=== PATIENT | male | born 1970 | race Caucasian/White ===

== ENCOUNTER → 2021-05-14 10:58 | Outpatient (CLI) | payer OTHER, SELFPAY ==
--- NOTE | ~2021-05-14 | US_ITS ---
EXAMINATION: US abdomen limited EXAM DATE: 05/14/2021 11:18 INDICATION: R74.8 - Abnormal levels of other serum enzymes. TECHNIQUE: Multiple grayscale and Doppler images of the abdomen right upper quadrant were obtained (b y a technologist who performed the scan) and subsequently reviewed. There is no prior study for vasquez rivera. FINDINGS: The pancreatic head and body are normal in appearance. The pancreatic tail is not visualized. There is echogenic liver parenchyma with poor penetration, hepatic steatosis. There are no focal liver le sions identified. There is no evidence of intrahepatic biliary duct dilation. Portal venous flow w as seen in the hepatopedal, normal direction and has normal Doppler waveform. No right-sided hydrone phrosis. Common bile duct measures 5 mm, which is normal. The gallbladder wall is normal in thickness, with ex pected amount of distention. No sonographic evidence of pericholecystic fluid. There is no cholelit hiases. Technologist performing exam reports patient did not demonstrate sonographic Moore's sign. Please note that this sign is less reliable in patients who have received pain medication. IMPRESSION: 1. Hepatic steatosis. Reviewed, dictated and finalized at location A. LOGY TEACHER IMPRESSION: 1. Hepatic steatosis.
== END ==
PROVIDERS: Visit Provider Nurse Practitioner Family
DX: R74.9 Abnormal serum enzyme level, unspecified (principal); K76.0 Fatty (change of) liver, not elsewhere classified
CPT/HCPCS: 76705

== ENCOUNTER 2022-06-29 10:10 | Outpatient (CLI) | payer OTHER, SELFPAY ==
--- NOTE | 2022-06-29 10:40 | EST_ITS ---
Patient Info Name: Hardik Delgado Age: 51 years : 1970 Gender: Male Ht: 69 in Wt: 170 lbs BSA: 1.95 m2 HR: 74 bpm BP: 140 / 94 mmHg Heart Rhythm: Sinus Rhythm Exam Date: 06/29/2022 10:48 AM Exam Location: [facility] Stress Patient Status: Outpatient Admit Date: 06/29/2022 Staff Ordering Physician: Yas Leahy NP Attending Provider: Yas Leahy NP Exercise Technologist: Carissa Sweet CT Exercise Physician: Jeronimo Florence DO Exam Type: CA stress test treadmill Study Info Indications Z72.3 - EXERCISE INTOLERANCE A treadmill exercise stress test was performed. Summary 1. 1. Negative Soto exercise stress test for ischemic ST changes by ECG criteria. 2. 2. Reduced functional capacity, achieving 8 METs of workload. 3. 3. Baseline hypertension. 4. 4. Appropriate HR response to exercise. 5. 5. Appropriate HR recovery at 1 minute post exercise. 6. 6. No imaging with stress testing. 7. 7. Patient informed of the above results. Protocol: Soto Stress ECG Details Stage: REST Duration (min): 1 min : 14 sec Speed (mph): 0.0 Grade (%): 0 HR (bpm): 76 SBP (mmHg): 140 DBP (mmHg): 94 METS: --- Stage: REST Duration (min): 3 min : 25 sec Speed (mph): 0.0 Grade (%): 0 HR (bpm): 89 SBP (mmHg): 140 DBP (mmHg): 94 METS: --- Stage: STAGE 1 Duration (min): 1 min : 0 sec Speed (mph): 1.7 Grade (%): 10 HR (bpm): 114 SBP (mmHg): 140 DBP (mmHg): 94 METS: --- Stage: STAGE 1 Duration (min): 2 min : 0 sec Speed (mph): 1.7 Grade (%): 10 HR (bpm): 128 SBP (mmHg): 140 DBP (mmHg): 94 METS: --- Stage: STAGE 1 Duration (min): 3 min : 0 sec Speed (mph): 1.7 Grade (%): 10 HR (bpm): 129 SBP (mmHg): 177 DBP (mmHg): 85 METS: --- Stage: STAGE 2 Duration (min): 1 min : 0 sec Speed (mph): 2.5 Grade (%): 12 HR (bpm): 143 SBP (mmHg): 177 DBP (mmHg): 85 METS: --- Stage: STAGE 2 Duration (min): 2 min : 0 sec Speed (mph): 2.5 Grade (%): 12 HR (bpm): 152 SBP (mmHg): 182 DBP (mmHg): 86 METS: --- Stage: STAGE 2 Duration (min): 3 min : 0 sec Speed (mph): 2.5 Grade (%): 12 HR (bpm): 160 SBP (mmHg): 182 DBP (mmHg): 86 METS: --- Stage: STAGE 3 Duration (min): 0 min : 30 sec Speed (mph): 3.4 Grade (%): 14 HR (bpm): 166 SBP (mmHg): 197 DBP (mmHg): 88 METS: --- Stage: RECOVERY Duration (min): 0 min : 29 sec Speed (mph): 0.0 Grade (%): 0 HR (bpm): 167 SBP (mmHg): 197 DBP (mmHg): 88 METS: --- Stage: RECOVERY Duration (min): 1 min : 29 sec Speed (mph): 0.0 Grade (%): 0 HR (bpm): 129 SBP (mmHg): 197 DBP (mmHg): 88 METS: --- Stage: RECOVERY Duration (min): 2 min : 29 sec Speed (mph): 0.0 Grade (%): 0 HR (bpm): 111 SBP (mmHg): 197 DBP (mmHg): 88 MET
== END 2022-06-29 10:11 | disposition home or self-care (01) ==
LOC: ANHCARD 10:11
PROVIDERS: PCP Nurse Practitioner Family; Visit Provider Nurse Practitioner Family
DX: R68.89 Other general symptoms and signs (principal)
CPT/HCPCS: 93017

== ENCOUNTER 2023-12-29 15:13 | Emergency (ER) | payer OTHER, SELFPAY ==
--- NOTE | ~2023-12-29 | XR_ITS ---
XR elbow LT min 3V Ordering provider: Madison Monge APRN History: . pain swelling to left posterior elbow, no injury . Comparison: None. FINDINGS: BONES: Small chip of bone is seen superiorly adjacent to the medial humeral condyle. Small chip fract ure seen inferiorly near to the medial humeral condyle with slight displacement. JOINT SPACES: Normal. SOFT TISSUES: Soft tissue swelling seen posteriorly. IMPRESSION: Chip fractures seen near to the medial humeral condyle. Avulsion fractures are not excluded. Soft tis jeevan swelling seen posteriorly. Reviewed, dictated and finalized at location A. IMPRESSION: Chip fractures seen near to the medial humeral condyle. Avulsion fractures are not excluded. Soft tissue swelling seen posteriorly.
--- NOTE | 2023-12-29 16:42 | ED.UPPEXIN ---
HPI - Extremity Injury (Upper) General Chief Complaint: Extremity Injury, Upper Stated Complaint: Right Elbow Pain Source: patient Mode of arrival: ambulatory Limitations: no limitations History of Present Illness HPI narrative: 53-year-old male presented for complaint of left elbow swelling after injury 10 days ago. He states he tripped and landed on the elbow. He denies any pain, numbness, tingling, weakness of the extremity. He states he has swelling to the skin of the elbow and 'it dangles.' Related Data Home Medications Medication Instructions Recorded Confirmed omeprazole 20 mg capsule,delayed 20 mg PO DAILY 01/05/21 12/29/23 release Allergies Allergy/AdvReac Type Severity Reaction Status Date / Time No Known Allergies Allergy Unknown Verified 12/29/23 15:34 Review of Systems Review of Systems: CONSTITUTIONAL: Denies body aches, fever, chills CARDIOVASCULAR: Denies chest pain, palpitations, or edema. RESPIRATORY: Denies cough or dyspnea. SKIN: Denies rash, itching, or wounds. MUSCULOSKELETAL: Reports left elbow swelling Denies back pain, joint pain, or myalgia. NEUROLOGIC: Denies headache, numbness, tingling, or weakness. All systems reviewed & are unremarkable except as noted in HPI and below PMFSH Past Medical History Medical History BMI 25.0-25.9,adult Chest pain Chronic left shoulder pain Chronic neck pain Decreased exercise tolerance Dyspnea on exertion Elevated fasting glucose Elevated liver enzymes Encounter to establish care Family history of cardiovascular disease GERD (gastroesophageal reflux disease) Hyperlipidemia Hypersomnia retirement use of drug Muscle cramping Screening for colon cancer Screening for prostate cancer Wellness examination Surgical History Surgical History History of surgery on arm Family History Family History Father Family history of cardiovascular disease Mother Cerebrovascular accident Grandparent Diabetes mellitus Social History Social History Smoking status: Former smoker Second hand tobacco smoke exposure: No Smoking end date: 05/16/08 Alcohol intake: current Substance use: never Substance use type: does not use Comments At time of signature, I have reviewed and agree with nursing past medical, surgical, social and family history unless otherwise noted. Please see nursing chart for further information. There is no relevant family history pertinent to the presenting complaint Exam Narrative: GENERAL: Well-appearing CHEST: Speaks in full sentences. No respiratory distress. HEART: Regular rate and rhythm. Normal and equal peripheral pulses. EXTREMITIES: ZA has normal strength and sensation, normal range of motion with flexion/extension at elbow; denies pain with movement. No ecchymosis warmth or erythema to elbow. minimal point tenderness to olecranon. No open wounds, skin tenting, or obvious deformity; alignment normal, pulse palpable and equal bilaterally, skin warm, dry, pink. Capillary refill less than 3 seconds. SKIN: Warm, dry, no rash. NEURO: Alert and oriented x3. PSYCH: Normal mood and affect Course Course Emergency Course: Patient is aware of diagnosis, understands and agrees to treatment plan. Anticipatory guidance given. Patient agrees to follow-up as directed and is aware of reasons to seek care at the emergency department. Portions of this record may have been created with voice recognition software Level of Care: Express Care Visit Vital Signs Vital signs: Reviewed MDM - Extremity Injury (Upper) MDM Narrative Medical decision making narrative: results of x-ray reviewed with patient. Injury appears more consistent with bursitis. Contacted Dr. Hartley who advised
== END 2023-12-29 17:08 | disposition home or self-care (01) ==
PROVIDERS: Emergency Provider Nurse Practitioner Family; PCP Nurse Practitioner Family
DX: M25.422 Effusion, left elbow (principal); Z87.891 Personal history of nicotine dependence; K21.9 Gastro-esophageal reflux disease without esophagitis; E78.5 Hyperlipidemia, unspecified
CPT/HCPCS: 73080; 99213; G0463